=== PATIENT | female | born 2000 | race African-American/Black ===

== ENCOUNTER 2020-12-20 01:37 | Emergency (ER) | payer OTHER ==
[~2020-12-20] VITALS: Ht 154 cm; Wt 95.3 kg
--- OUTSIDE RECORDS SUMMARY | 2020-12-20 01:45 | XMS REPORT | Clinical Summary ---
Author Author [facility] Organization [facility] Address Unknown Phone Unavailable Care Team Providers Care Java Developer Architect Name Role Phone No, Pcp SAP PP CONSULTANT PP Unavailable Allergies Comments Active Allergy Reactions Severity Noted Date Adhesive Hives 03/02/2019 Egg Derived GI 01/27/2018 Intolerance Rubber- hives and then turns into valdes Other Hives 03/02/2019 Medications End Date Status Medication Sig Dispensed Refills Start Date Active CONSUELO, 28, 3-0.03 mg 0 tablet 9 Active Problems Not on file Social History Date Tobacco Use Types Packs/Day Years Used Never Smoker Smokeless Tobacco: Never Used Sex Assigned at Date Recorded Not on file Plan of Treatment Health Maintenance Due Date Last Done Comments Cervical Cancer: 2021 Screening Results Not on filefrom Last 3 Months Care Teams Start Date End Date Java Developer Architect Relationship Specialty 11/10/19 No, Pcp, SAP PP CONSULTANT PCP - General N/A Do not use
--- OUTSIDE RECORDS SUMMARY | 2020-12-20 01:45 | XMS REPORT | Clinical Summary ---
Author Author [facility] Organization [facility] Address Unknown Phone Unavailable Care Team Providers Care Sign Writer Letterer Or Painter Name Role Phone Tracy Ching MD PCP Allergies Comments Active Allergy Reactions Severity Noted Date Egg Derived 01/27/2018 Medications Not on file Active Problems Not on file Social History Date Tobacco Use Types Packs/Day Years Used Never Smoker Smokeless Tobacco: Never Used Comments Alcohol Use Standard Drinks/Week No 0 (1 standard drink = 0.6 o z pure alcohol) Sex Assigned at Date Recorded Not on file Last Filed Vital Signs Reading Time Taken Comments Vital Sign 129/73 01/27/2018 6:48 AM [facility] Blood Pressure 128 01/27/2018 6:48 AM [facility] Pulse 36.6 C (97.8 F) 01/27/2018 7:26 AM [facility] Temperature 18 01/27/2018 6:48 AM [facility] Respiratory Rate 99% 01/27/2018 6:48 AM [facility] Oxygen Saturation - - Inhaled Oxygen Concentration 109.5 kg (241 lb 6.5 oz) 01/27/2018 6:48 AM [facility] Weight - - Height - - Body Mass Index Plan of Treatment Health Maintenance Due Date Last Done Comments Td/Tdap# 2000 HPV Vaccine (1 - 2-dose 10/25/2011 series) COVID-19 Vaccine (1) 2012 MCV4 Vaccine Aged Out No longer eligible based on patient's age to complete this topic Pneumococcal Vaccine: Aged Out No longer eligib le based on patient's age to Pediatrics (0 to 5 Years) complete this topic and At-Risk Patients (6 to 64 Years) Results Not on filefrom Last 3 Months Additional Health Concerns Onset Date Last Indicated Infection 01/27/2018 01/27/2018 Influenza Insurance Type Payer Benefit Subscriber ID Effective Phone Address Plan / Dates Group [facility] [id number] 2017-P [phone] [address] [address] [place] [address] Advance Directives For more information, please contact: [phone] Patient Packer Fuser Explanation Type Date Recorded Health Care Directive Care Teams Start Date End Date Sign Writer Letterer Or Painter Relationship Specialty 01/27/18 Tracy Ching MD PCP - General Pediatrics [address] [facility] [address] [place] [address]
--- NOTE | 2020-12-20 02:19 | ED Neck-Back Pain/Injury ---
General Chief Complaint: Head/Cervical Problems Stated Complaint: NECK PAIN Nursing Triage Note: PT REPORTS TO ER WITH C/O NECK PAIN X2 DAYS FROM SLEEPING WRONG. PT STATES THAT THE PAIN IS LIMITING HER ROM, IS 6/10 PAIN SCALE RATING, HAS A SHARP/ACHE QAULITY, THAT RADIATES TO THE BACK OF HER HEAD. PT STATES THAT THE BACKL OF HER NECK HURST WHEN SWALLOWING. PT TOOK ADVIL OTC W/O RELIEF. Source of Information: Patient Exam Limitations: No Limitations History of Present Illness Date Seen by Provider: Dec 20, 2020 Time Seen by Provider: 01:59 Initial Comments Patient presents ER by private conveyance with 2 days of progressively worsening stiffness in her neck radiating pain up under her head. She says she has decreasing range of motion. She has not had any traumatic injury. Symptoms were not first noticed on Friday. No significant medical or surgical history. She is not having earache. She says she started having some pain in the muscles of her neck even when swallowing. She does not have a sore throat. She does not have a cough fever chills nausea vomiting diarrhea. No sick contacts. She does not have a significant family medical history outside of her dad has diabetes and hypertension and her mother having pulmonary embolism that they are still working up. She has been using Advil and heating pads with minimal relief of symptoms. She has a primary care provider in [facility] that she has not seen yet. She has a student with [employer]. She is on Sprintec with her last menstrual period being the third week of November. Allergies and Home Medications Allergies Coded Allergies: No Known Drug Allergies (Unverified , 12/20/20) Patient Home Medication List Home Medication List Reviewed: Yes Cyclobenzaprine HCl (Cyclobenzaprine HCl) 10 Mg Tablet, 10 MG PO Q8H PRN for SPASMS Prescribed by: BUCKY GUPTA on 12/20/20 0354 Review of Systems Constitutional: No chills, No fever, No malaise, No weakness EENTM: No ear discharge, No ear pain Respiratory: No cough, No phlegm Cardiovascular: No chest pain, No edema Gastrointestinal: No abdominal pain, No constipation, No diarrhea, No nausea Genitourinary: No dysuria, No nocturia : No Control/STD Prophylaxis: BC Pills All Other Systems Reviewed Negative Unless Noted: Yes Past Vqanvfa-Hxycis-Xikpol Hx Patient Social History Tobacco Use?: No Smoking Status: Never a Smoker Use of E-Cig and/or Vaping dev: No Substance use?: No Alcohol Use?: Yes Alcohol type: Beer, Hard Liquor, Wine Alcohol Frequency: Couple times a week Pt feels they are or have been: No Immunizations Up To Date Influenza Vaccine Up-to-Date: Yes; Up-to-Date First/Initial COVID19 Vaccinat: APRIL 2020 Second COVID19 Vaccination Brain: MAY 2020 COVID19 Vaccine Room Service Bellhop: LAURA Past Medical History Last Menstrual Period: Nov 27, 2020 Physical Exam Vital Signs Vital Signs - First Documented 12/20/20 01:48 Temp 36.4 Pulse 78 Resp 16 B/P (MAP) 117/64 (81) Pulse Ox 98 O2 Delivery Room Air Capillary Refill : Less Than 3 Seconds Height, Weight, BMI Height: '" Weight: lbs. oz. kg; 40.00 BMI Method: General Appearance: WD/WN, Mild Distress HEENT: PERRL/EOMI, TMs Normal, Normal ENT Inspection, Pharynx Normal, Moist Mucous Membranes; No Pharyngeal Erythema, No Photophobia, No Tonsillar Exudate, No Tonsillar Enlargement Neck: No Full Range of Motion; Normal Inspection; No Non Tender (Tender both midline and on the paraspinous muscles bilaterally without deformity or step- off.); Supple Cardiovascular: Regular Rate, Rhythm, No Edema, Normal Peripheral Pulses Respiratory: Chest Non Tender, No Accessory Muscle Use, No Respiratory Distress Extremity: Normal Capillary Refill, Normal Inspection, No Pedal Edema Neurologic/Psychiatric: Alert, Oriented x3, No Motor/Sensory Deficits, Normal Mood/Affect, charge histotechnologist II-XII Norm as Tested Skin: Normal Color, Warm/Dry Progress/Results/Core Measures Results/Orders Lab Results Laboratory Tests Test 12/20/20 02:22 Range/Units White Blood Count 10.3 4.3-11.0 10^3/uL Red Blood Count 4.21 3.80-5.11 10^6/uL Hemoglobin 12.9 11.5-16.0 g/dL Hematocrit 38 35-52 % Mean Corpuscular Volume 90 80-99 fL Mean Corpuscular Hemoglobin 31 25-34 pg Mean Corpuscular Hemoglobin Concent 34 32-36 g/dL Red Cell Distribution Width 11.6 10.0-14.5 % Platelet Count 311 130-400 10^3/uL Mean Platelet Volume 10.5 9.0-12.2 fL Immature Granulocyte % (Auto) 0 % Neutrophils (%) (Auto) 57 42-75 % Lymphocytes (%) (Auto) 33 12-44 % Monocytes (%) (Auto) 9 0-12 % Eosinophils (%) (Auto) 1 0-10 % Basophils (%) (Auto) 1 0-10 % Neutrophils # (Auto) 5.8 1.8-7.8 10^3/uL Lymphocytes # (Auto) 3.4 1.0-4.0 10^3/uL Monocytes # (Auto) 0.9 0.0-1.0 10^3/uL Eosinophils # (Auto) 0.1 0.0-0.3 10^3/uL Basophils # (Auto) 0.1 0.0-0.1 10^3/uL Immature Granulocyte # (Auto) 0.0 0.0-0.1 10^3/uL Sodium Level 136 135-145 MMOL/L Potassium Level 3.8 3.6-5.0 MMOL/L Chloride Level 103 98-107 MMOL/L Carbon Dioxide Level 22 21-32 MMOL/L Anion Gap 11 5-14 MMOL/L Blood Urea Nitrogen 12 7-18 MG/DL Creatinine 0.81 0.60-1.30 MG/DL Estimat Glomerular Filtration Rate 90 BUN/Creatinine Ratio 15 Glucose Level 86 70-105 MG/DL Calcium Level 8.6 8.5-10.1 MG/DL Corrected Calcium 8.9 8.5-10.1 MG/DL Total Bilirubin 0.3 0.1-1.0 MG/DL Aspartate Amino Transf (AST/SGOT) 17 5-34 U/L Alanine Aminotransferase (ALT/SGPT) 12 0-55 U/L Alkaline Phosphatase 66 40-136 U/L C-Reactive Protein High Sensitivity 1.49 H 0.00-0.50 MG/DL Total Protein 6.6 6.4-8.2 GM/DL Albumin 3.6 3.2-4.5 GM/DL My Orders Orders - BUCKY GUPTA Ct Head/Cervical Spine Wo (12/20/20 02:13) Cbc With Automated Diff (12/20/20 02:13) Comprehensive Metabolic Panel (12/20/20 02:13) Hs C Reactive Protein (12/20/20 02:13) Ketorolac Injection (Toradol Injection) (12/20/20 04:00) Orphenadrine Inj (Ed Only) (Norflex Inje (12/20/20 04:00) Medications Given in ED Current Medications Medications Dose Ordered Sig/Bethanie Route Start Time Stop Time Status Last Admin Dose Admin Ketorolac Tromethamine 60 mg ONCE ONCE IM 12/20/20 04:00 12/20/20 04:01 DC 12/20/20 04:05 60 MG Orphenadrine Citrate 60 mg ONCE ONCE IM 12/20/20 04:00 12/20/20 04:01 DC 12/20/20 04:05 60 MG Vital Signs/I&O 12/20/20 12/20/20 01:48 04:06 Temp 36.4 36.4 Pulse 78 78 Resp 16 16 B/P (MAP) 117/64 (81) 117/64 Pulse Ox 98 98 O2 Delivery Room Air Room Air Blood Pressure Mean: 81 Progress Progress Note : Time: 02:16 Progress Note Aseptic vital signs. Neck pain and stiffness without meningismus fever or septic vital signs. What is concerning is that the pain travels up into the center of her head. Plan to get a CT of her head and neck. There is no lateralizing symptom. Suspect torticollis however because of the atypical presentation for CT and lab draw are okay for inflammatory markers we will just give her muscle relaxants, Toradol and have her follow-up with the [facility] for expectant management. If not seeing some improvement in the first week or so and we could consider advanced, MRI imaging. We will give her good return precautions. At this time otherwise she is neurologically intact. Offered her a urine test which she declined stating she is not . She is able to recite her last menstrual period based on her use of Sprintec. Diagnostic Imaging Diagonstic Imaging: CT Plain Films/CT/US/NM/MRI: c-spine, head Comments No acute intracranial hemorrhage, hydrocephalus or mass-effect. No acute fracture or subluxation. Multiple calcifications in the right parotid gland. [facility]. [place], [place] NAME: [facility] REC#: [id number] PT STATUS: DEP ER : 2000 PHYSICIAN: BUCKY GPUTA MD ADMIT DATE: 12/20/20/ER Draft Date of Exam:12/20/20 CT HEAD/CERVICAL SPINE WO PROCEDURE: CT head and CT cervical spine without contrast. TECHNIQUE: Multiple contiguous axial images were obtained through the brain and cervical spine without the use of intravenous contrast. Sagittal and coronal reformations through the cervical spine were then performed. Auto Exposure Controls were utilized during the CT exam to meet ALARA standards for radiation dose reduction. INDICATION: Trauma with head and neck pain CT HEAD: CT images of the head were obtained. FINDINGS: Ventricles and sulci are within normal limits for size. There is no intracranial hemorrhage identified. There is no abnormal mass effect or shift of midline structures. There is lucency coursing to the medial aspect of the left frontal bone without evidence of surrounding edema or hemorrhage. This likely represents chronic defect. The visualized paranasal sinuses are clear. Note is made of punctate calcifications within the parenchyma of the right parotid gland with additional minimal calcification just medial to the left parotid gland. IMPRESSION: Unremarkable CT of the head. CT CERVICAL SPINE: Multiple contiguous axial CT images of the cervical spine were obtained with sagittal and coronal reformatted images produced. FINDINGS: There is loss of normal cervical lordosis. Vertebral body heights and disc spaces are maintained. Prevertebral soft tissues are unremarkable, and there is no evidence of paraspinous hematoma. IMPRESSION: Loss of normal cervical lordosis which may be due to positioning or muscle spasm. There is, otherwise, no CT evidence of acute cervical spinal abnormality. Dictated on workstation # [id number] Dict: 12/20/20 0448 Trans: 12/20/20 0511 [facility] [id number] Interpreted by: SUSAN VILLA MD Electronically signed by: Reviewed: Reviewed Night Hawk Study, Reviewed by Me Departure Impression Primary Impression: Torticollis, acquired Disposition: 01 HOME, SELF-CARE Condition: Stable Departure-Patient Inst. Decision time for Depature: 03:47 Referrals: NO,LOCAL PHYSICIAN (PCP/Family) Primary Care Physician Patient Instructions: Headache, Adult (DC), Torticollis, Adult Add. Discharge Instructions: I think your headache is being caused by torticollis. Torticollis is spasm of the paraspinous muscles of your neck. Typically caused by a virus and will resolve on its own in about a week or two. Muscle relaxant cyclobenzaprine 1 tablet every 8 hours as necessary. Will cause drowsiness. Ibuprofen 800 mg every 8 hours as necessary for pain. Tylenol 1000 mg every 8 hours necessary for pain. Topical creams such as icy hot or Biofreeze applied to your neck liberally. Heat applied to your neck and also help relieve spasm and pain in your neck. All discharge instructions reviewed with patient and/or family. Voiced understanding. Scripts Cyclobenzaprine HCl (Cyclobenzaprine HCl) 10 Mg Tablet 10 MG PO Q8H PRN for SPASMS, #20 TAB 0 Refills Prov: BUCKY GUPTA 12/20/20 Work/School Note: School/Childcare Release Date Seen in the Emergency Department: Dec 20, 2020 Time Dismissed from Emergency Department: 03:54 Return to School: Dec 22, 2020 Restrictions: No Restrictions Copy Copies To 1: BERNARDA GRANADO MD, TITUS J Dec 20, 2020 02:19
[2020-12-20] MEDS ORDERED: cloNIDine 0.1 MG (CATAPRES) TAB PO ONE (02:30)
[2020-12-20 02:37] LABS: BASOPHILS # (AUTO) 0.1 10^3/uL (0.0-0.1); BASOPHILS % (AUTO) 1 % (0-10); EOSINOPHILS # (AUTO) 0.1 10^3/uL (0.0-0.3); EOSINOPHILS % (AUTO) 1 % (0-10); HEMATOCRIT 38 % (35-52); HEMOGLOBIN 12.9 g/dL (11.5-16.0); LYMPHOCYTES # (AUTO) 3.4 10^3/uL (1.0-4.0); LYMPHOCYTES % (AUTO) 33 % (12-44); MEAN CORPUSCULAR HEMOGLOBIN 31 pg (25-34); MEAN CORPUSCULAR HGB CONC 34 g/dL (32-36); MEAN CORPUSCULAR VOLUME 90 fL (80-99); MEAN PLATELET VOLUME 10.5 fL (9.0-12.2); MONOCYTES # (AUTO) 0.9 10^3/uL (0.0-1.0); MONOCYTES % (AUTO) 9 % (0-12); NEUTROPHILS # (AUTO) 5.8 10^3/uL (1.8-7.8); NEUTROPHILS % (AUTO) 57 % (42-75); PLATELET COUNT 311 10^3/uL (130-400); WHITE BLOOD COUNT 10.3 10^3/uL (4.3-11.0)
[2020-12-20 02:45] LABS: ALBUMIN 3.6 GM/DL (3.2-4.5); POTASSIUM 3.8 MMOL/L (3.6-5.0)
[2020-12-20 02:46] LABS: CALCIUM 8.6 MG/DL (8.5-10.1)
[2020-12-20 02:48] LABS: TOTAL PROTEIN 6.6 GM/DL (6.4-8.2)
[2020-12-20 02:49] LABS: BILIRUBIN,TOTAL 0.3 MG/DL (0.1-1.0)
[2020-12-20 02:51] LABS: CREATININE SERUM 0.81 MG/DL (0.60-1.30)
[2020-12-20] MEDS ORDERED: CYCL10TA9 PO (03:54)
[2020-12-20] MEDS ORDERED: ORPHENADRINE 60 MG/2 ML (NORFLEX) AMP (ED ONLY) IM ONE (04:00)
[2020-12-20] MEDS ORDERED: KETOROLAC 60 MG/2 ML VIAL IM ONE (04:00)
[2020-12-20 04:06] VITALS: BP 117/64
--- NOTE | 2020-12-20 05:11 | Diagnostic Imaging Report ---
PROCEDURE: CT head and CT cervical spine without contrast. TECHNIQUE: Multiple contiguous axial images were obtained through the brain and cervical spine without the use of intravenous contrast. Sagittal and coronal reformations through the cervical spine were then performed. Auto Exposure Controls were utilized during the CT exam to meet ALARA standards for radiation dose reduction. INDICATION: Trauma with head and neck pain CT HEAD: CT images of the head were obtained. FINDINGS: Ventricles and sulci are within normal limits for size. There is no intracranial hemorrhage identified. There is no abnormal mass effect or shift of midline structures. There is lucency coursing to the medial aspect of the left frontal bone without evidence of surrounding edema or hemorrhage. This likely represents chronic defect. The visualized paranasal sinuses are clear. Note is made of punctate calcifications within the parenchyma of the right parotid gland with additional minimal calcification just medial to the left parotid gland. IMPRESSION: Unremarkable CT of the head. CT CERVICAL SPINE: Multiple contiguous axial CT images of the cervical spine were obtained with sagittal and coronal reformatted images produced. FINDINGS: There is loss of normal cervical lordosis. Vertebral body heights and disc spaces are maintained. Prevertebral soft tissues are unremarkable, and there is no evidence of paraspinous hematoma. IMPRESSION: Loss of normal cervical lordosis which may be due to positioning or muscle spasm. There is, otherwise, no CT evidence of acute cervical spinal abnormality. Dictated by: Dictated on workstation # [id number]
== END 2020-12-20 04:05 | disposition home or self-care (01) ==
LOC: ER 01:43
DX: M43.6 Torticollis (principal)
CPT/HCPCS: 36415; 70450; 72125; 80053; 85025; 86141